=== PATIENT | female | born 1970 | race Caucasian/White ===

== ENCOUNTER 2018-05-11 20:41 | Emergency (ER) | payer OTHER ==
[~2018-05-11] VITALS: Ht 165.1 cm; Wt 65.4 kg
[~2018-05-11 20:41] MED LIST: BLAC40CA2 PO; DULO-24 PO
[2018-05-11 20:46] VITALS: Ht 165.1 cm; Wt 65.4 kg
[2018-05-11] MEDS ORDERED: MoRPHine SULFATE 4 MG/ML 1 ML CARP\\VIAL IV STA (20:58)
[2018-05-11] MEDS ORDERED: CLINDAMYCIN IV 300 MG in DEXTROSE 5% 50ML 50 ML IV STA (21:01)
[2018-05-11] MEDS ORDERED: DIPHTHERIA/TETANUS/PERTUSSIS 0.5 ML SYR/VIAL IM. ONE (21:15)
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
[2018-05-11] MEDS ORDERED: DULO-24 PO (21:26)
[2018-05-11] MEDS ORDERED: LORAZEPAM 2 MG/ML 1 ML VIAL ONE (21:43)
[2018-05-11 21:59] VITALS: BP 133/78
--- NOTE | 2018-05-11 22:07 | DIAGNOSTIC IMAGING REPORT ---
LEFT INDEX FINGER 3 VIEWS CLINICAL HISTORY: Left index finger pain status post trauma COMPARISON: None DISCUSSION: There is acute fracture involving the tuft of the distal phalanx. There is a 3.5 mm displaced fragment. There is an overlying soft tissue amputation. There is a nondisplaced oblique fracture involving the middle phalanx of index finger. IMPRESSION: 1. Nondisplaced oblique fracture involving the middle phalanx of the index finger 2. Traumatic" involving the distalmost tuft of the distal phalanx of the index finger. There is a 3.5 mm displaced fragment. There is an overlying soft tissue amputation. Electronically signed by: Alvaro Umaña M.D. 05/11/2018 10:05 PM Dictated Date/Time: 05/11/2018 10:03 PM
[2018-05-11] MEDS ORDERED: BUPIVACAINE 0.5 % 5 MG/1 ML MPF 30ML VIAL INFIL ONE (22:15)
[2018-05-11] MEDS ORDERED: LIDOCAINE 1% BUFFERED INJ 20 ML VIAL INFIL ONE (22:15)
[2018-05-11] MEDS ORDERED: BUPIVACAINE 0.25% 30 ML VIAL ONE (22:20)
[2018-05-11] MEDS ORDERED: CLIN150C PO (22:38)
[2018-05-11] MEDS ORDERED: ACET300T3 PO (22:40)
--- NOTE | 2018-05-11 23:24 | EMERGENCY ROOM VISIT NOTE ---
ED Visit Note I was asked by Dr. Hernandez to perform digital block and wound irrigation of this patient's left index finger partial amputation. Please see his note for further HPI and full ED course. Verbal consent was obtained to perform the procedure. Using sterile technique the finger was cleansed with Betadine. 6 ml of 1:1 solution of bupivacaine and 1% buffered lidocaine was used to perform a digital block to anesthetize the patient. The area was sterilely draped. Once the patient was anesthetized, the wound was copiously irrigated under pressure with sterile saline. There was no significant bleeding and no foreign body seen in the wound. When the wound was adequately irrigated, a dressing of Xeroform gauze and metal finger splint was applied to the finger by myself and the ED drain technician. The patient tolerated procedure very well and had significant pain relief. No complications were met.
[2018-05-11] MEDS ORDERED: ACETAMINOPHEN/CODEINE 300/30MG TAB PO ONE (23:45)
[2018-05-11 23:47] VITALS: PULSE 78; O2SAT 98
[2018-05-14] MEDS ORDERED: DULO-24 PO (12:23)
[2018-05-14] MEDS ORDERED: OXYC-90 PO (12:23)
[2018-05-14] MEDS ORDERED: CLIN150C PO (12:23)
[2018-05-15] MEDS ORDERED: CEPH-571 PO (12:54)
== END 2018-05-11 23:40 | disposition home or self-care (01) ==
LOC: C.EDB 20:43 → C.EDA 23:40
DX: S68.111A Complete traumatic metacarpophalangeal amputation of left index finger, initial encounter (principal); S62.651A Nondisplaced fracture of middle phalanx of left index finger, initial encounter for closed fracture; Z23 Encounter for immunization; V86.99XA Unspecified occupant of other special all-terrain or other off-road motor vehicle injured in nontraffic accident, initial encounter; F17.200 Nicotine dependence, unspecified, uncomplicated; Z88.0 Allergy status to penicillin

== ENCOUNTER → 2018-05-15 | Day surgery (SDC) | payer OTHER ==
[2018-05-14 12:24] VITALS: Ht 165.1 cm; Wt 61.4 kg
[~2018-05-15] VITALS: Ht 165.1 cm; Wt 61.4 kg
[~2018-05-15] MED LIST changes: +ATROPINE SULFATE 0.1 MG/ML 5ML SYR IV PRN; -BLAC40CA2 PO; +BUPIVACAINE 0.5 % 5 MG/1 ML PF 10ML VIAL ONE; +CEFAZOLIN 1000MG IV PUSH 7.5 ML IV SCH; +CEFAZOLIN SOD 1000MG/7.5 ML IV PUSH ONE; +CEPH-571 PO; +CLIN150C PO; +DEXAMETHASONE SOD INJ 4 MG/ML VIAL ONE; +EpHEDrine SULFATE INJ 50 MG/ML AMP IV PRN; +FENTANYL CITRATE INJ 50 MCG/1 ML 2 ML VIAL IV PRN; +FENTANYL CITRATE INJ 50 MCG/1 ML 2 ML VIAL ONE; +LACTATED RINGER'S 1000ML 1,000 ML IV SCH; +LIDOCAINE HCL 2% 2 ML VIAL (20MG/ML) ONE; +LIDOCAINE HCL 2% LOCAL 20 ML VIAL ONE; +MIDAZOLAM HCL 1 MG/ML 2ML VIAL ONE; +ONDANSETRON INJ 2 MG/ML 2 ML VIAL IV PRN; +ONDANSETRON INJ 2 MG/ML 2 ML VIAL ONE; +OXYC-90 PO; +OXYCODONE/ACETAMINOPHEN 5-325 TAB PO PRN; +PROPOFOL IV EMULSION 10 MG/ML 20 ML VIAL ONE; +SODIUM CHLORIDE 0.9% 1000ML 1,000 ML IV SCH
--- NOTE | 2018-05-15 10:54 | History & Physical Bridge - SC ---
H&P Re-Evaluation Bridge Note: I have examined the patient, reviewed the History & Physical and in the interval since the performance of the History & Physical I have noted the following changes of clinical significance: No changes noted
[2018-05-15 12:52] VITALS: TEMP 36.3
--- NOTE | 2018-05-15 12:52 | [facility] Post Operative Brief Note ---
Immediate Operative Summary Operative Date May 15, 2018. Pre-Operative Diagnosis LEFT INDES FINGER DISTAL PHALANX OPEN FRACTURE/AMPUTATION WITH SOFT TISSUE DEFECT + LACERATION Post-Operative Diagnosis SAME PREOP Procedure(s) Performed Left Second Phalanx Incision And Drainage, Skeletal Shortening, Revision of Amputaion And Closure Surgeon DR. Laney MUJICA Upholstery Trimmer Surgeon(s) SHASHANK LEMON PA-C Estimated Blood Loss MINIMAL Findings Consistent with Post-Op Diagnosis Specimens NONE Drains None Anesthesia Type MAC Complication(s) none Disposition Accompanied Pt To Recovery: no Disposition: Recovery Room / PACU
--- NOTE | 2018-05-15 12:56 | Discharge Instructions-SurgCtr ---
Discharge Instructions Date of Service May 15, 2018. Visit Reason for Visit: Left Distal Phalanx Open Fracture Discharge Discharge Diagnosis / Problem: SAME ABOVE Discharge Goals Goal(s): Decrease discomfort, Improve function Activity Recommendations Activity Limitations: as noted below Lifting Limitations: gradually increase as tolerated Exercise/Sports Limitations: until after follow-up appointment Shower/Bathe: keep incision dry Anesthesia . Post Anesthesia Instructions: If you have had General Anesthesia or IV Sedation: * Do not drive today. * Resume driving when surgeon permits. * Do not make important decisions or sign legal documents today. * Call surgeon for: 1. Temperature elevations greater than 101 degrees F. 2. Uncontrollable pain. 3. Excessive bleeding. 4. Persistent nausea and vomiting. 5. Medication intolerance (nausea, vomiting or rash). * For nausea and vomiting use only clear liquids such as: tea, soda, bouillon until nausea subsides, then gradually increase diet as tolerated. * If you have any concerns or questions, call your surgeon's office. If physician is unavailable and it is an emergency, call 911 or go to the nearest emergency room. . Instructions / Follow-Up Instructions / Follow-Up MEDICATIONS: * Resume previous medications unless instructed otherwise by your surgeon. * Always take pain medication on a full stomach or with food to avoid upset stomach. * Do not drink alcohol or drive while taking narcotics. * Ibuprofen or Tylenol may be taken if narcotic not needed. SPECIAL CARE INSTRUCTIONS: __ None _X_ Keep extremity elevated and iced x 48 hours; apply ice 20-30 minutes 8-10 times/day. May remove at night. __ Sling __24 hrs/day __ Remove at night __ Shoulder Immobilizer __ 24 hrs/day __ Remove at night _X_ Dressing _X_ Maintain until seen in office, may shower with plastic over site __ Remove dressings in 24-48 hours and then may shower __ Cover incisions with band-aids after showering __ Do not remove steri-strips Call physician if chills or temperature rises above 102 degrees or pain unrelieved by prescribed pain medications at . . Diet Recommendations Home Diet: resume previous diet Procedures Procedures Performed: Left Second Phalanx Incision And Drainage, Skeletal Shortening, Revision of Amputaion And Closure Pending Studies Studies pending at discharge: no Medical Emergencies . Who to Call and When: Medical Emergencies: If at any time you feel your situation is an emergency, please call 911 immediately. . Non-Emergent Contact Non-Emergency issues call your: Primary Care Provider . . "Provider Documentation" section prepared by Anthony Lopez. .
--- NOTE | 2018-05-15 13:16 | Anesthesia Progress Nt - [facility] ---
Anesthesia Post Op Note Date & Time May 15, 2018 at 13:16 Vital Signs Pain Intensity: 0 Vital Signs Past 12 Hours Date Time Temp Pulse Resp B/P (MAP) Pulse Ox O2 Delivery O2 Flow Rate FiO2 05/15/18 12:52 36.3 66 16 96/61 (73) 99 Room Air 05/15/18 09:59 36.7 67 67 102/67 (79) 95 Room Air Notes Mental Status: alert / awake / arousable, participated in evaluation Pt Amnestic to Procedure: Yes Nausea / Vomiting: adequately controlled Pain: adequately controlled Airway Patency, RR, SpO2: stable & adequate BP & HR: stable & adequate Hydration State: stable & adequate Anesthetic Complications: no major complications apparent
[2018-05-15 13:18] VITALS: BP 104/65; PULSE 65; O2SAT 100
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
== END | disposition home or self-care (01) ==
LOC: X.SURG 09:23
PROVIDERS: ATTEND Orthopaedic Surgery Sports Medicine
DX: S68.121A Partial traumatic metacarpophalangeal amputation of left index finger, initial encounter (principal); X58.XXXA Exposure to other specified factors, initial encounter; Z88.0 Allergy status to penicillin; F17.200 Nicotine dependence, unspecified, uncomplicated